=== PATIENT | male | born 1980 | race Caucasian/White ===

== ENCOUNTER 2020-01-10 16:25 | Observation (INO) | payer SELFPAY ==
[~2020-01-10 16:25] MED LIST: Dexamethasone 20 MG/5 ML VIAL ONE; EPHEDRINE 25 MG/5 ML SYRINGE ONE; Ketorolac Tromethamine 30 MG/ML VIAL ONE; Lidocaine 1% PF 5 ML VIAL ONE; Ondansetron PF 4 MG/2 ML Vial ONE; PHENYLEPHRINE-NS 100 MCG/ML 10 ML SYRINGE ONE; PROPOFOL 200 MG/20 ML VIAL ONE
[2020-01-10] MEDS ORDERED: Morphine 4 MG/ML VIAL ONE (18:10)
[2020-01-10] MEDS ORDERED: Gentamicin 80 MG/2 ML VIAL ONE (18:11)
[2020-01-10] MEDS ORDERED: Sodium Chloride 0.9% 100 ML ONE (18:11)
[2020-01-10] MEDS ORDERED: Bupivacaine PF 0.5% 30 ML VIAL ONE (19:31)
[2020-01-10] MEDS ORDERED: Thrombin 5000 UNITS/5 ML VIAL ONE (19:32)
[2020-01-10] MEDS ORDERED: Bacitracin Zinc Ointment 30 gm TUBE ONE (19:32)
[2020-01-10] MEDS ORDERED: Sodium Chloride 0.9% 60 ML ONE (19:32)
[2020-01-10] MEDS ORDERED: Fentanyl 100 MCG/2 ML VIAL ONE (20:20)
[2020-01-10] MEDS ORDERED: Ondansetron PF 4 MG/2 ML Vial SLOW IVP PRN (20:34)
[2020-01-10] MEDS ORDERED: Promethazine HCl 25 MG/ML VIAL IM PRN ×2 (20:34→22:42)
[2020-01-10] MEDS ORDERED: Fentanyl 100 MCG/2 ML VIAL SLOW IVP PRN (20:34)
[2020-01-10] MEDS ORDERED: Morphine 4 MG/ML VIAL SLOW IVP PRN (20:34)
[2020-01-10] MEDS ORDERED: Bisacodyl 10 MG SUPP PR PRN (20:34)
[2020-01-10] MEDS ORDERED: Milk Of Magnesia 30 ML UDCUP PO PRN (20:34)
[2020-01-10] MEDS ORDERED: traMADol HCl 50 MG TAB PO PRN (20:34)
[2020-01-10] MEDS ORDERED: Ketorolac Tromethamine 30 MG/ML VIAL IVP PRN (20:39)
[2020-01-10] MEDS ORDERED: Meperidine HCl/PF 25 MG/ML VIAL IM PRN (20:39)
[2020-01-10] MEDS ORDERED: Communication Order-Pharmacy FS SCH (20:45)
[2020-01-10] MEDS ORDERED: TETANUS AND DIPHTHERIA TOX/PF 0.5 ML DISP.SYRIN IM SCH (21:00)
[2020-01-10] MEDS ORDERED: PACU-Morphine 4MG/ML VIAL SLOW IVP PRN (22:42)
[2020-01-10] MEDS ORDERED: Promethazine HCl 25 MG/ML VIAL SLOW IVP PRN (22:42)
[2020-01-10] MEDS ORDERED: Ondansetron HCl/PF 4 MG/2 ML Vial IVP PRN (22:42)
[2020-01-10] MEDS ORDERED: HYDROmorphone 2 MG/ML VIAL SLOW IVP PRN (22:42)
[2020-01-11] MEDS: Aspirin 81 mg Enteric Coated Tablet PO SCH ×2 (00:30→08:28)
[2020-01-11] MEDS: Sodium Chloride 0.9% 1,000 ML IV SCH ×3 (00:30→16:57)
[2020-01-11] MEDS: Ketorolac Tromethamine 30 MG/ML VIAL IVP SCH ×4 (01:00→18:03)
--- NOTE | 2020-01-11 02:49 | OP ---
DATE OF PROCEDURE: 01/10/2020 PREOPERATIVE DIAGNOSES: Right 8 cm wound with common jagged edges, curvilinear shape, with exposed wrist joint and extensor tendon. POSTOPERATIVE DIAGNOSES: Right 8 cm wound with common jagged edges, curvilinear shape, with exposed wrist joint and extensor tendon. FINDINGS: 1. An 8 cm laceration dorsal radioulnar joint. 2. Open dorsal and distal radioulnar joint dorsal capsule. 3. Extensor digiti minimi greater than 70% laceration. 4. No extensor digitorum communis laceration. 5. Extensor carpi ulnaris sheath laceration without tear of the extensor carpi ulnaris tendon.. COMPLICATIONS: None. JOINT EXPOSURE: Yes. PROCEDURES PERFORMED: 1. Debridement. 2. Associated open joint right distal radioulnar joint/wrist, repair distal radioulnar joint capsule. 3. Extensor carpi ulnaris sheath repair. 4. Extensor digitorum minimi zone 6 tendon repair. 5. Debridement of closure of 8 cm wound. 6. Application of short-arm splint. COMPLICATIONS: None. SPECIMEN: None. TOURNIQUET TIME: 50 minutes. ESTIMATED BLOOD LOSS: 15 mL. DESCRIPTION OF PROCEDURE: After successful general endotracheal anesthesia, the limb was prepped and draped. The patient had tourniquet applied prior to prepping and draping. He was given 20 mL of 0.5% Marcaine nancy-incisional block technique before the procedure after prepping and draping . After successful prepping and draping and initiation of the local anesthetic, we saw the 8 cm jagged wound extended 2 cm distal and 2 cm proximal, exposed the underlying tissue, but immediately we saw a laceration through the 5th dorsal compartment into the extensor digiti minimi tendon sheath. The ulnar head was visible for approximately 15 mm up to but not including TFCC and the ulna could be subluxed. There was an opening in the joint capsule. We elevated the joint capsule, irrigated it with 3 L normal saline and Pulsavac pressure. Then, we debrided the wound edges as well as the wound and on any denuded fascia to include dirt particles around the incision using combination of tenotomy scissor, 11 blade knife, [place] blade, Adson curette, and then irrigation with 3 L normal saline and Pulsavac pressure. Thus, the both the wound joint had the irrigation. We then released the 5th extensor compartment and saw there was no extensor digitorum communis laceration and we looked as there was a small 6 mm hole long in the extensor carpi ulnaris sheath or the six compartment there was extensor carpi ulnaris was not lacerated. After finished the debridement and irrigation, we began repaired the deepest layer by first forcing the ulna back into a located position from dorsal to central in the distal radioulnar joint/to ulnar groove of the radius and repaired this with a #1 Ethibond on an OS-4 needle multiple [id number] sutures. Then, we had good reduction and stability. At that point, we expected ECU and repaired the sheath with a 2-0 Vicryl. This was followed by repair of the extensor digitorum minimi, which was approximately 70% to 75% lacerated using multiple [id number] with a 4-0 Prolene. This gave excellent repair. We were able to place it back in his bed where we then repaired the sheath over the 5th dorsal compartment as well as that over the ECU. This was done with a 4-0 Prolene. The wound was then repaired with a multiple interrupted deep dermal 4-0 Monocryl and then a 4-0 nylon was used to repair the epidermis after we finished repairing the sheath of the 4th to the 5th dorsal compartment with the Vicryl is listed above. The tourniquet had been deflated before skin repair. Hemostasis obtained. Superficial ulnar nerve appeared intact with visualization and the hemostasis was excellent. Bulky dressing applied along with a splint. The patient left the operating room without evidence of anesthetic or operative complication. Job ID: [id number]
[2020-01-11 02:56] VITALS: BMI 19.8
[2020-01-11] MEDS: Vancomycin 1 GM in Premix Bag 1 BAG IVPB SCH ×2 (06:00→13:46)
[2020-01-11] MEDS: HYDROcodone/Acetaminophen 5/325 mg Tablet PO PRN ×2 (12:14→18:07)
[2020-01-11 19:49] VITALS: BP 121/72; TEMP 98.2
== END 2020-01-11 19:45 | disposition home or self-care (01) ==
LOC: SDC 16:25 → SURG B 20:34
PROVIDERS: ADMIT Orthopaedic Surgery Hand Surgery; ATTEND Orthopaedic Surgery Hand Surgery
PROC: 0RQN0ZZ Repair Right Wrist Joint, Open Approach (ICD-10-PCS; principal; 2020-01-10)
PROC: 0LQ70ZZ Repair Right Hand Tendon, Open Approach (ICD-10-PCS; 2020-01-10)
DX: S63.011A Subluxation of distal radioulnar joint of right wrist, initial encounter (principal)
CPT/HCPCS: 96361; 96365; 96366; 96375; 96376; G0378; J0690; J1100; J1580; J1885; J2270; J2405; J2704; J3010; J3370; J3490; S0020

== ENCOUNTER 2022-10-22 22:23 | Emergency (ER) | payer SELFPAY ==
[2022-10-22] MEDS ORDERED: Ketorolac Tromethamine 30 MG/ML VIAL ONE (23:24)
== END 2022-10-23 00:45 | disposition home or self-care (01) ==
LOC: ERS 22:23
DX: S92.002A Unspecified fracture of left calcaneus, initial encounter for closed fracture (principal); F17.210 Nicotine dependence, cigarettes, uncomplicated; W11.XXXA Fall on and from ladder, initial encounter
CPT/HCPCS: 29515; 96372; J1885

== ENCOUNTER 2022-11-07 07:42 | Day surgery (SDC) | payer SELFPAY ==
[2022-11-07] MEDS ORDERED: Midazolam HCl 2 mg/2 ml Vial ONE (11:06)
[2022-11-07] MEDS ORDERED: Bupivacaine PF 0.5% 30 ML VIAL ONE (11:06)
[2022-11-07] MEDS ORDERED: fentaNYL 50 mcg/mL 1 mL Vial ONE (11:06)
[2022-11-07] MEDS ORDERED: fentaNYL PF 100 MCG/2 ML SYRINGE ONE (13:15)
[2022-11-07] MEDS ORDERED: Sodium Chloride 0.9% 100 ML ONE (13:17)
[2022-11-07] MEDS ORDERED: CEFAZOLIN 2 GM VIAL ONE (13:17)
[2022-11-07] MEDS ORDERED: PROPOFOL 200 MG/20 ML VIAL ONE (13:48)
[2022-11-07] MEDS ORDERED: Lidocaine 1% PF 5 ML VIAL ONE (13:48)
[2022-11-07] MEDS ORDERED: ePHEDrine Sulfate 50 MG/10 ML VIAL ONE (13:48)
[2022-11-07] MEDS ORDERED: NEOSTIGMINE 3 MG/3 ML SYR 3 MG/3 ML SYRINGE ONE (13:48)
[2022-11-07] MEDS ORDERED: Dexamethasone 20 MG/5 ML VIAL ONE (13:48)
[2022-11-07] MEDS ORDERED: PHENYLEPHRINE-NS 100 MCG/ML 10 ML SYRINGE ONE (13:48)
[2022-11-07] MEDS ORDERED: Ondansetron PF 4 MG/2 ML Vial ONE (13:48)
[2022-11-07] MEDS ORDERED: Bupivacaine HCl 0.5%/Epinephrine 1:200,000/PF 30 ml Vial ONE (13:48)
[2022-11-07] MEDS ORDERED: Rocuronium Bromide 10 MG/ML (10ML VIAL) ONE (13:48)
[2022-11-07] MEDS ORDERED: Glycopyrrolate 0.2 MG/ML 5 ML SYRINGE ONE (13:48)
== END 2022-11-07 17:52 | disposition home or self-care (01) ==
LOC: SDC 07:42
PROVIDERS: ATTEND Orthopaedic Surgery
PROC: 0QSM04Z Reposition Left Tarsal with Internal Fixation Device, Open Approach (ICD-10-PCS; principal; 2022-11-07)
DX: S92.002A Unspecified fracture of left calcaneus, initial encounter for closed fracture (principal); Z87.891 Personal history of nicotine dependence; W11.XXXA Fall on and from ladder, initial encounter
CPT/HCPCS: C1713; J1100; J2250; J2405; J2704; J3010; J3490; S0020

== ENCOUNTER 2022-11-28 19:17 | Emergency (ER) | payer SELFPAY ==
[2022-11-28] MEDS ORDERED: HYDROcodone/Acetaminophen 5/325 mg Tablet ONE (21:20)
== END 2022-11-28 21:23 | disposition home or self-care (01) ==
LOC: ERS 19:17
DX: M79.672 Pain in left foot (principal); F17.210 Nicotine dependence, cigarettes, uncomplicated

== ENCOUNTER 2022-12-24 09:29 | Observation (INO) | payer BC ==
[2022-12-24 11:14] LABS: #Basophils 0.1 thou/uL (0.0-0.2); #Eosinphils 0.2 thou/uL (0.0-0.7); #Monocytes 0.8 thou/uL (0.11-0.59); %Basophils 0.6 % (0.0-1.0); %Eosinophils 2.2 % (0.0-10.0); %Lymphocytes 14.8 % (21.0-51.0); %Monocytes 9.5 % (0.0-10.0); %Neutrophils 72.7 % (42.0-75.0); Hematocrit 33.3 % (42.0-52.0); Hemoglobin 10.7 g/dL (14.0-18.0); Mean Corpuscular HGB CONC 32.1 g/dL (32.0-36.0); Mean Corpuscular Hemoglobin 28.4 pg (27.0-31.0); Mean Corpuscular Volume 88.3 fl (78.0-98.0); Mean Platelet Volume 8.8 fL (7.4-10.4); Platelet Count 342 10x3/uL (130-400); RBC Distribution Width 12.3 % (11.5-14.5); Red Blood Cell (RBC) Count 3.77 mill/uL (4.70-6.10); White Blood Cell (WBC) Count 8.3 10x3/uL (4.8-10.8)
[2022-12-24 11:38] LABS: Anion Gap 12 mmol/L (10-20); BUN (Urea Nitrogen) 12 mg/dL (8.9-20.6); CRP (Inflammatory) 4.31 mg/dL (= or < 0.5); Calc. Creatinine Clearance 0 mL/min (70-130); Calcium 9.5 mg/dL (7.8-10.44); Carbon Dioxide 29 mmol/L (22-29); Chloride 100 mmol/L (98-107); Estimated GFR 103; Glucose 114 mg/dL (70-105); Potassium 4.6 mmol/L (3.5-5.1); Sodium 136 mmol/L (136-145)
[2022-12-24] MEDS ORDERED: fentaNYL PF 100 MCG/2 ML SYRINGE ONE ×2 (11:44→14:14)
[2022-12-24] MEDS ORDERED: Midazolam HCl 2 mg/2 ml Vial ONE (12:25)
[2022-12-24] MEDS ORDERED: Lidocaine 1% PF 5 ML VIAL ONE (12:40)
[2022-12-24] MEDS ORDERED: Rocuronium Bromide 10 MG/ML (10ML VIAL) ONE (12:40)
[2022-12-24] MEDS ORDERED: PROPOFOL 200 MG/20 ML VIAL ONE (12:40)
[2022-12-24] MEDS ORDERED: Ketorolac Tromethamine 30 MG/ML VIAL ONE (12:40)
[2022-12-24] MEDS ORDERED: Ondansetron PF 4 MG/2 ML Vial ONE (12:40)
[2022-12-24] MEDS ORDERED: SUGAMMADEX SODIUM 200 MG/2 ML VIAL ONE (13:17)
[2022-12-24] MEDS ORDERED: HYDROcodone/Acetaminophen 5/325 mg Tablet PO PRN (13:43)
[2022-12-24] MEDS ORDERED: Communication Order-Pharmacy FS SCH (13:45)
[2022-12-24] MEDS ORDERED: HYDROmorphone 2 MG/ML VIAL SLOW IVP PRN (13:49)
[2022-12-24] MEDS ORDERED: Promethazine HCl 25 MG/ML VIAL IM PRN (13:49)
[2022-12-24] MEDS ORDERED: Ondansetron HCl/PF 4 MG/2 ML Vial IVP PRN (13:49)
[2022-12-24] MEDS ORDERED: Meperidine HCl/PF 25 MG/ML VIAL SLOW IVP PRN (13:49)
[2022-12-24 15:24] LABS: #Eosinphils 0.2 thou/uL (0.0-0.7); #Monocytes 0.6 thou/uL (0.11-0.59); #Neutrophils 4.8 thou/uL (1.40-6.50); %Basophils 0.5 % (0.0-1.0); %Eosinophils 2.6 % (0.0-10.0); %Lymphocytes 25.7 % (21.0-51.0); %Monocytes 7.9 % (0.0-10.0); %Neutrophils 63.2 % (42.0-75.0); Hematocrit 29.5 % (42.0-52.0); Hemoglobin 9.6 g/dL (14.0-18.0); Mean Corpuscular HGB CONC 32.5 g/dL (32.0-36.0); Mean Corpuscular Hemoglobin 28.7 pg (27.0-31.0); Mean Corpuscular Volume 88.1 fl (78.0-98.0); Mean Platelet Volume 8.7 fL (7.4-10.4); Platelet Count 289 10x3/uL (130-400); RBC Distribution Width 12.3 % (11.5-14.5); Red Blood Cell (RBC) Count 3.35 mill/uL (4.70-6.10); White Blood Cell (WBC) Count 7.6 10x3/uL (4.8-10.8)
[2022-12-24 15:34] VITALS: BMI 21.0
[2022-12-24 15:55] LABS: ALT (SGPT) Less than 7 U/L (8-55); AST (SGOT) 10 U/L (5-34); Albumin 3.1 g/dL (3.5-5.0); Alkaline Phosphatase 110 U/L (40-110); Anion Gap 12 mmol/L (10-20); BUN (Urea Nitrogen) 10 mg/dL (8.9-20.6); Bilirubin, Total 0.5 mg/dL (0.2-1.2); Calc. Creatinine Clearance 120 mL/min (70-130); Calcium 8.9 mg/dL (7.8-10.44); Carbon Dioxide 27 mmol/L (22-29); Chloride 101 mmol/L (98-107); Estimated GFR 113; Globulin 3.8 g/dL (2.4-3.5); Glucose 96 mg/dL (70-105); Potassium 4.5 mmol/L (3.5-5.1); Protein, Total 6.9 g/dL (6.0-8.3); Sodium 135 mmol/L (136-145)
[2022-12-24] MEDS: HYDROcodone/Acetaminophen 5/325 mg Tablet PO PRN (18:41)
[2022-12-24] MEDS: CEFAZOLIN 2 GM in Sodium Chloride 0.9% 100 ML IVPB SCH (21:20)
[2022-12-25] MEDS: CEFAZOLIN 2 GM in Sodium Chloride 0.9% 100 ML IVPB SCH (06:59)
[2022-12-25 08:07] VITALS: BP 134/72; TEMP 97.2
[2022-12-25] MEDS: HYDROcodone/Acetaminophen 5/325 mg Tablet PO PRN (08:48)
[2022-12-25] MEDS ORDERED: Cephalexin 250 MG CAP PO SCH (12:00)
== END 2022-12-25 11:29 | disposition home or self-care (01) ==
LOC: SDC 09:29 → T4-B 13:43
PROVIDERS: ADMIT Internal Medicine; ATTEND Internal Medicine
PROC: 0H9NXZZ Drainage of Left Foot Skin, External Approach (ICD-10-PCS; principal; 2022-12-24)
DX: T81.41XA Infection following a procedure, superficial incisional surgical site, initial encounter (principal); L02.612 Cutaneous abscess of left foot; L03.116 Cellulitis of left lower limb; Z87.891 Personal history of nicotine dependence; Y79.2 Prosthetic and other implants, materials and accessory orthopedic devices associated with adverse incidents
CPT/HCPCS: 36415; 80048; 85025; 86140; 87070; 87077; 87186; 87205; J1885; J2250; J2405; J2704; J3490

== ENCOUNTER 2023-05-27 11:45 | Inpatient (IN) | payer BC ==
[2023-05-25 11:49] VITALS: BMI 21.7
[2023-05-27] MEDS ORDERED: Lidocaine 1% PF 5 ML VIAL ONE (11:59)
[2023-05-27] MEDS ORDERED: PROPOFOL 20 ML ONE (12:00)
[2023-05-27] MEDS ORDERED: Ondansetron PF 4 MG/2 ML Vial ONE (12:00)
[2023-05-27] MEDS ORDERED: fentaNYL 50 mcg/mL 1 mL Vial ONE (12:01)
[2023-05-27] MEDS ORDERED: Midazolam HCl 2 mg/2 ml Vial ONE (12:15)
[2023-05-27] MEDS ORDERED: Ondansetron PF 4 MG/2 ML Vial SLOW IVP PRN (12:21)
[2023-05-27] MEDS ORDERED: fentaNYL 50 mcg/mL 1 mL Vial SLOW IVP PRN (12:21)
[2023-05-27] MEDS ORDERED: traMADol HCl 50 MG TAB PO PRN (12:21)
[2023-05-27] MEDS ORDERED: Promethazine HCl 25 MG/ML VIAL IM PRN (12:57)
[2023-05-27] MEDS ORDERED: Ondansetron HCl/PF 4 MG/2 ML Vial IVP PRN (12:57)
[2023-05-27] MEDS ORDERED: HYDROmorphone 2 MG/ML VIAL SLOW IVP PRN (12:57)
[2023-05-27] MEDS ORDERED: Meperidine HCl/PF 25 MG/ML VIAL SLOW IVP PRN (12:57)
[2023-05-27] MEDS ORDERED: Morphine Sulfate 2 MG/ML SYRINGE SLOW IVP PRN (12:57)
[2023-05-27] MEDS ORDERED: Lidocaine 1% (PF) 30 ML VIAL ONE (13:16)
[2023-05-27] MEDS ORDERED: Ketamine In 0.9 % NaCl 50 MG/5 ML SYRINGE ONE (13:34)
[2023-05-27] MEDS ORDERED: Dexamethasone 20 MG/5 ML VIAL ONE (13:36)
[2023-05-27] MEDS ORDERED: CEFAZOLIN 1 GM VIAL ONE (13:50)
[2023-05-27] MEDS ORDERED: Bupivacaine PF 0.5% 30 ML VIAL ONE (13:52)
[2023-05-27] MEDS ORDERED: Dexmedetomidine 200 MCG/2 ML VIAL ONE (13:54)
[2023-05-27] MEDS ORDERED: Sodium Chloride 0.9% 100 ML ONE (15:51)
[2023-05-27] MEDS ORDERED: Piperacillin/Tazobactam 3.375 GM VIAL ONE (15:51)
[2023-05-27] MEDS: Piperacillin/Tazobactam 3.375 GM in Sodium Chloride 0.9% 100 ML IVPB SCH ×2 (15:57→23:05)
[2023-05-27] MEDS: Ketorolac Tromethamine 30 MG (1 mL) VIAL IVP SCH (19:13)
[2023-05-27] MEDS: Vancomycin (BATCH) 1.75 GM in Premix 1 BAG IVPB SCH (20:21)
[2023-05-27] MEDS ORDERED: Vancomycin (BATCH) 1.5 GM in Premix 1 BAG IVPB SCH (21:00)
[2023-05-27] MEDS: HYDROcodone/Acetaminophen 5/325 mg Tablet PO PRN (23:06)
[2023-05-28] MEDS: Piperacillin/Tazobactam 3.375 GM in Sodium Chloride 0.9% 100 ML IVPB SCH (05:29)
[2023-05-28 05:30] LABS: #Monocytes 0.2 thou/uL (0.11-0.59); #Neutrophils 5.7 thou/uL (1.40-6.50); %Lymphocytes 15.2 % (21.0-51.0); %Monocytes 2.7 % (0.0-10.0); %Neutrophils 81.8 % (42.0-75.0); Hematocrit 35.2 % (42.0-52.0); Mean Corpuscular HGB CONC 31.3 g/dL (32.0-36.0); Mean Corpuscular Hemoglobin 26.2 pg (27.0-31.0); Mean Corpuscular Volume 83.8 fl (78.0-98.0); Mean Platelet Volume 8.9 fL (7.4-10.4); Platelet Count 385 10x3/uL (130-400); RBC Distribution Width 14.1 % (11.5-14.5)
[2023-05-28] MEDS ORDERED: Vancomycin (BATCH) 1.25 GM in Premix 1 BAG IVPB SCH (06:00)
[2023-05-28] MEDS: Vancomycin (BATCH) 1.25 GM in Premix 1 BAG IVPB SCH (10:02)
[2023-05-28] MEDS: Aspirin 81 mg Enteric Coated Tablet PO SCH (22:00)
[2023-05-29] MEDS ORDERED: Piperacillin/Tazobactam 3.375 GM in Sodium Chloride 0.9% 100 ML IVPB SCH (10:00)
[2023-05-30] MEDS: CEFAZOLIN 2 GM in Sodium Chloride 0.9% 100 ML IVPB SCH (08:24)
[2023-05-30 11:42] VITALS: BP 150/84; TEMP 97.8
== END 2023-05-30 11:35 | disposition home or self-care (01) | DRG 497 ==
LOC: SDC 11:45 → SURG A 12:21
PROVIDERS: ADMIT Orthopaedic Surgery; ATTEND Orthopaedic Surgery
PROC: 0QPL04Z Removal of Internal Fixation Device from Right Tarsal, Open Approach (ICD-10-PCS; principal; 2023-05-27)
DX: T84.69XA Infection and inflammatory reaction due to internal fixation device of other site, initial encounter (principal); F17.210 Nicotine dependence, cigarettes, uncomplicated; B95.61 Methicillin susceptible Staphylococcus aureus infection as the cause of diseases classified elsewhere; Y83.8 Other surgical procedures as the cause of abnormal reaction of the patient, or of later complication, without mention of misadventure at the time of the procedure; Z79.2 Long term (current) use of antibiotics; Z71.6 Tobacco abuse counseling
CPT/HCPCS: 36415; 80202; 82565; 85025; 86140; 87070; 87077; 87186; 87205; A6448; J0665; J0690; J1100; J1885; J2001; J2250; J2405; J2543; J2704; J3010; J3370; J3490